=== PATIENT | female | born 1975 | race African-American/Black ===

== ENCOUNTER 2019-12-02 21:00 | Emergency (ER) | payer SELFPAY ==
[~2019-12-02] VITALS: Ht 165.1 cm; Wt 87.0 kg
--- NOTE | 2019-12-02 21:58 | NUR ---
PT STATES SHE CAME IN TODAY BECAUSE "I THINK I HAVE SOMETHING WRONG WITH MY TONSILS". REPORTS THAT THEY ARE SORE AND SHE HAS A SORE THROAT WITH THEM WELL SOME SWELLING. LYMPHNODES FEEL TO BE ENLARGED, PT PLACED ON SPO2/BP MONITORING. SHANTHI PEDERSEN AT BS FOR EVAL AND POC.
--- NOTE | 2019-12-02 22:31 | NUR ---
PT RESTING IN [facility], NAD, APPEARS COMFORTABLE, DENIES ADDITIONAL NEEDS AT THIS TIME. GIVEN WARM BLANKETSF OR COMFORT. WAITING FOR STREP RESULTS. WCTM.
[2019-12-02 22:52] VITALS: BP 128/92
--- NOTE | 2019-12-02 22:54 | NUR ---
Note chuck in EDM - 12/02/19 at 2303 by RADHA PatienT given discharge instructions and they have confirmed that they understand the instructions. Patient ambulatory with steady gait. DENIES ADDITIONAL QUESTIONS OR NEEDS AT THIS TIME. NAD, VSS, NO BELONGINGS LEFT IN ROOM AFTER DC.
[2019-12-02] MEDS ORDERED: DEXAMETHASONE 4 MG TABLET PO ONE (23:00)
[2019-12-02] MEDS ORDERED: DEXAMETHASONE 4 MG TABLET ONE (23:01)
--- NOTE | 2019-12-02 23:03 | NUR ---
PT RESTING ON FABIOLA LEGGETT, MEDICATED EPR JUN, WAITING FOR PROVIDER DISPO. WCTM.
--- NOTE | 2019-12-02 23:03 | NUR ---
PREVIOUS NOTE CHARTED ON WRONG PT.
== END 2019-12-02 23:27 | disposition home or self-care (01) ==
LOC: ED 23:00
DX: J02.8 Acute pharyngitis due to other specified organisms (principal); B97.89 Other viral agents as the cause of diseases classified elsewhere
CPT/HCPCS: 87081; 87880; 99283

== ENCOUNTER 2019-12-20 00:42 | Emergency (ER) | payer MEDICAID ==
[~2019-12-20] VITALS: Ht 165.1 cm; Wt 87.8 kg
[2019-12-20 00:46] VITALS: BP 109/76
--- NOTE | 2019-12-20 01:04 | NUR ---
this tech did ekg
[2019-12-20] MEDS ORDERED: ALBUTEROL SULFATE 2.5 MG/3 ML ONE (01:12)
[2019-12-20] MEDS ORDERED: ALBUTEROL SULFATE 2.5 MG/3 ML NPPB ONE (01:30)
--- NOTE | 2019-12-20 01:50 | NUR ---
PT REFUSING LABS, ERP AWARE
--- NOTE | 2019-12-20 02:18 | NUR ---
Patient/Caregiver given discharge instructions and they have confirmed that they understand the instructions. Patient ambulatory with steady gait.
== END 2019-12-20 02:26 | disposition home or self-care (01) ==
LOC: ED 01:15
DX: J44.1 Chronic obstructive pulmonary disease with (acute) exacerbation (principal); F17.200 Nicotine dependence, unspecified, uncomplicated; R94.31 Abnormal electrocardiogram [ECG] [EKG]
CPT/HCPCS: 71045; 93005; 94640; 99283; J7512; J7613